=== PATIENT | female | born 1935 | race Hispanic/Latino ===

== ENCOUNTER 2022-11-30 07:40 | Day surgery (SDC) | payer OTHER ==
[~2022-11-30 07:40] MED LIST: 0.9%NACL 1000ML 1,000 ML IV ONE; AEC81 PO; CARV12.511 PO; CLOP75TA32 PO; ERGO500093 PO; FERR-72 PO; ITRA100C3 PO; METF-446 PO; ROSU40TA21 PO
[2022-11-30 08:26] LABS: HEMATOCRIT 22.9 % (36-48); LYMPHOCYTES % (AUTO) 14.1 % (21.0-51.0); MEAN CORPUSCULAR HEMOGLOBIN 28.5 pg (27.0-33.0); MEAN CORPUSCULAR HGB CONC 30.6 g/dL (32.0-36.0); MEAN CORPUSCULAR VOLUME 93.1 fL (79-99); MONOCYTES % (AUTO) 10.4 % (3.0-13.0); NEUTROPHILS % (AUTO) 67.9 % (40.0-77.0); PLATELET COUNT (AUTO) 301 K/uL (130-400); RED BLOOD CELL COUNT(AUTO) 2.46 MIL/uL (4.00-5.50); RED CELL DISTRIBUTION WIDTH 15.1 % (11.0-15.5)
[2022-11-30 08:30] LABS: CREATININE 3.9 mg/dL (0.5-1.5); POTASSIUM 3.6 mmol/L (3.5-5.1)
[2022-11-30 08:31] LABS: INR 0.94 (0.85-1.15); PROTHROMBIN TIME 10.3 SEC (9.6-11.6)
[2022-11-30 08:33] LABS: PARTIAL THROMBOPLASTIN TIME 28.8 SEC (26.3-35.5)
[2022-11-30] MEDS ORDERED: HEPARIN 1,000 UNIT VIAL ONE (09:32)
[2022-11-30] MEDS ORDERED: LIDOCAINE HCL 1% MDV 50ML VIAL ONE (09:32)
[2022-11-30 12:28] VITALS: BP 113/45
== END 2022-11-30 12:10 | disposition home or self-care (01) ==
LOC: DAH 07:40 → EDSTATUS 07:40 → DAH 12:10
PROVIDERS: ATTEND Internal Medicine Nephrology
DX: E11.22 Type 2 diabetes mellitus with diabetic chronic kidney disease (principal); Z20.822 Contact with and (suspected) exposure to COVID-19; I12.0 Hypertensive chronic kidney disease with stage 5 chronic kidney disease or end stage renal disease; N18.6 End stage renal disease; E11.51 Type 2 diabetes mellitus with diabetic peripheral angiopathy without gangrene; E66.01 Morbid (severe) obesity due to excess calories; E78.5 Hyperlipidemia, unspecified; E03.9 Hypothyroidism, unspecified; I25.10 Atherosclerotic heart disease of native coronary artery without angina pectoris; Z79.82 Long term (current) use of aspirin; Z79.01 Long term (current) use of anticoagulants; Z79.899 Other long term (current) drug therapy; Z99.2 Dependence on renal dialysis; Z83.3 Family history of diabetes mellitus
CPT/HCPCS: 36581; 77001; 80048; 85025; 85610; 85730; 82948; 36415; C1750; C1894; J7030; J1644 ×2; J3490; A4215; A4335; A4222; A4221; A4663; A4216; A4606; A4223 ×3; A4554

== ENCOUNTER 2023-02-06 11:27 | Emergency (ER) | payer OTHER ==
[~2023-02-06 11:27] MED LIST changes: -0.9%NACL 1000ML 1,000 ML IV ONE
== END 2023-02-06 11:59 | disposition left against medical advice (07) ==
LOC: EDH 11:27
DX: R68.89 Other general symptoms and signs (principal); Z53.21 Procedure and treatment not carried out due to patient leaving prior to being seen by health care provider

== ENCOUNTER 2023-02-09 06:23 | Day surgery (SDC) | payer OTHER ==
[2023-02-09] MEDS ORDERED: 0.9%NACL 1000ML 1,000 ML IV ONE (06:59)
[2023-02-09 07:10] LABS: INR 0.99 (0.85-1.15); PROTHROMBIN TIME 10.8 SEC (9.6-11.6)
[2023-02-09 07:11] LABS: PARTIAL THROMBOPLASTIN TIME 31.4 SEC (26.3-35.5)
[2023-02-09] MEDS ORDERED: LIDOCAINE HCL 1% MDV 50ML VIAL ONE (08:02)
== END 2023-02-09 09:45 | disposition home or self-care (01) ==
LOC: DAH 06:23
PROVIDERS: ATTEND Internal Medicine Nephrology
DX: Z45.2 Encounter for adjustment and management of vascular access device (principal); I13.0 Hypertensive heart and chronic kidney disease with heart failure and stage 1 through stage 4 chronic kidney disease, or unspecified chronic kidney disease; E11.22 Type 2 diabetes mellitus with diabetic chronic kidney disease; N18.4 Chronic kidney disease, stage 4 (severe); E03.9 Hypothyroidism, unspecified; E78.5 Hyperlipidemia, unspecified; M10.9 Gout, unspecified; M19.90 Unspecified osteoarthritis, unspecified site; E66.9 Obesity, unspecified; Z79.82 Long term (current) use of aspirin; Z79.899 Other long term (current) drug therapy; Z98.890 Other specified postprocedural states; Z90.49 Acquired absence of other specified parts of digestive tract; Z90.710 Acquired absence of both cervix and uterus; Z68.26 Body mass index [BMI] 26.0-26.9, adult
CPT/HCPCS: 36589; 71045; 85610; 85730; 82948; 36415; J7030; J3490; A4215; A4222; A4221; A4663; A4216; A4606; A4223 ×3